=== PATIENT | male | born 1960 | race Caucasian/White ===

== ENCOUNTER 2016-12-18 09:40 | Day surgery (SDC) | payer OTHER ==
[~2016-12-18] VITALS: Ht 170.2 cm; Wt 90.0 kg
[~2016-12-18 09:40] MED LIST: HYDROCHLOROTH12.5 M3 PO; HYDROCIL INSTA1 EAC1 PO; HYDROCIL INSTA300 GM PO; LISINOPRIL40 MG PO; ONE DAILY TABL1 EAC1 PO; TERAZOSIN HCL1 MG PO; ZESTRIL10 MG PO; ZOCOR20 MG PO
[2016-12-18 10:22] VITALS: BP 153/96
[2016-12-18 14:01] VITALS: BP 160/84
== END 2016-12-18 14:31 ==
LOC: SDC 09:40
DX: Z45.89 Encounter for adjustment and management of other implanted devices (principal); H33.42 Traction detachment of retina, left eye; H43.392 Other vitreous opacities, left eye
CPT/HCPCS: J0131; J0690; J1100; J2250; J2405; J2795; J3010; J3300